=== PATIENT | male | born 1985 | race Caucasian/White ===

== ENCOUNTER 2017-04-22 06:26 | Emergency (ER) | payer MEDICAID ==
[~2017-04-22] VITALS: Ht 177.8 cm; Wt 88.9 kg
[2017-04-22] MEDS ORDERED: ONDANSETRON ODT 4 MG PO ONE (07:00)
[2017-04-22] MEDS ORDERED: ONDANSETRON ODT 4 MG ONE (07:01)
[2017-04-22 08:23] VITALS: BP 110/62
== END 2017-04-22 08:25 | disposition home or self-care (01) ==
LOC: ED 06:42
DX: K52.9 Noninfective gastroenteritis and colitis, unspecified (principal)
CPT/HCPCS: 99283; Q0162

== ENCOUNTER 2018-07-08 10:44 | Emergency (ER) | payer MEDICAID ==
[~2018-07-08] VITALS: Ht 177.8 cm; Wt 105.0 kg
[2018-07-08 10:49] VITALS: BP 130/76
== END 2018-07-08 11:51 | disposition home or self-care (01) ==
LOC: ED 11:13
DX: J00 Acute nasopharyngitis [common cold] (principal)
CPT/HCPCS: 99283

== ENCOUNTER 2018-07-15 18:11 | Emergency (ER) | payer MEDICAID ==
[~2018-07-15] VITALS: Ht 177.8 cm; Wt 109.4 kg
[2018-07-15 18:15] VITALS: BP 119/80
[2018-07-15] MEDS ORDERED: BUSP10TA PO (18:29)
== END 2018-07-15 18:58 | disposition home or self-care (01) ==
LOC: ED 18:52
DX: F41.9 Anxiety disorder, unspecified (principal); Z76.0 Encounter for issue of repeat prescription
CPT/HCPCS: 99283

== ENCOUNTER 2018-07-30 12:10 | Emergency (ER) | payer MEDICAID ==
[~2018-07-30] VITALS: Ht 177.8 cm; Wt 107.3 kg
[~2018-07-30 12:10] MED LIST: BUSP10TA PO
[2018-07-30 12:18] VITALS: BP 123/79
== END 2018-07-30 12:52 | disposition home or self-care (01) ==
LOC: ED 12:29
DX: F41.1 Generalized anxiety disorder (principal); Z76.0 Encounter for issue of repeat prescription
CPT/HCPCS: 99283

== ENCOUNTER 2018-07-30 18:05 | Emergency (ER) | payer MEDICAID | END 2018-07-30 18:42 | disposition left against medical advice (07) | LOC: ED 18:37 | DX: Z53.21 Procedure and treatment not carried out due to patient leaving prior to being seen by health care provider (principal) ==